=== PATIENT | male | born 2000 | race Asian ===

== ENCOUNTER 2021-05-21 02:32 | Inpatient (IN) | payer SELFPAY ==
[2021-05-21 04:10] LABS: #Eosinphils 0.1 thou/uL (0.0-0.7); #Monocytes 0.7 thou/uL (0.11-0.59); %Basophils 0.3 % (0.0-1.0); %Lymphocytes 10.4 % (21.0-51.0); %Monocytes 7.2 % (0.0-10.0); %Neutrophils 81.1 % (42.0-75.0); Hemoglobin 12.7 g/dL (14.0-18.0); Mean Corpuscular Hemoglobin 28.1 pg (27.0-31.0); Platelet Count 288 thou/uL (130-400); RBC Distribution Width 12.1 % (11.5-14.5); Red Blood Cell (RBC) Count 4.53 mill/uL (4.70-6.10); White Blood Cell (WBC) Count 9.9 thou/uL (4.8-10.8)
[2021-05-21 04:28] LABS: ALT (SGPT) 15 U/L (8-55); AST (SGOT) 23 U/L (5-34); Albumin 4.2 g/dL (3.5-5.0); Alkaline Phosphatase 58 U/L (40-110); Anion Gap 16 mmol/L (10-20); BUN (Urea Nitrogen) 13 mg/dL (8.9-20.6); Bilirubin, Total 0.4 mg/dL (0.2-1.2); Calc. Creatinine Clearance 0 mL/min (70-130); Calcium 9.1 mg/dL (7.8-10.44); Carbon Dioxide 24 mmol/L (22-29); Chloride 107 mmol/L (98-107); Globulin 3.4 g/dL (2.4-3.5); Glucose 118 mg/dL (70-105); Potassium 3.5 mmol/L (3.5-5.1); Protein, Total 7.6 g/dL (6.0-8.3); Sodium 143 mmol/L (136-145)
[2021-05-21] MEDS ORDERED: Ketorolac Tromethamine 30 MG/ML VIAL ONE (04:48)
[2021-05-21] MEDS ORDERED: Ondansetron PF 4 MG/2 ML Vial ONE (04:48)
[2021-05-21] MEDS ORDERED: Fentanyl 100 MCG/2 ML VIAL ONE (04:48)
[2021-05-21] MEDS ORDERED: Ampicillin/Sulbactam 3 GM in Sodium Chloride 0.9% 100 ML IVPB SCH (05:15)
[2021-05-21] MEDS ORDERED: Morphine 4 MG/ML VIAL SLOW IVP PRN (05:42)
[2021-05-21] MEDS ORDERED: Sodium Chloride 0.9% 1,000 ML IV SCH (05:45)
[2021-05-21] MEDS ORDERED: Ondansetron PF 4 MG/2 ML Vial IVP PRN ×2 (05:45→08:46)
[2021-05-21] MEDS ORDERED: Ondansetron ODT 4 MG TAB SL PRN (05:45)
[2021-05-21 06:50] VITALS: BMI 23.3
[2021-05-21 07:12] LABS: Lactic Acid 1.7 mmol/L (0.5-2.2)
[2021-05-21] MEDS ORDERED: Acetaminophen 500 MG TAB PO PRN (08:46)
[2021-05-21] MEDS ORDERED: Ondansetron ODT 4 MG TAB PO PRN (08:46)
[2021-05-21] MEDS ORDERED: Vancomycin 1.5 GRAM/300 ML BAG 1.5 GM in Premix Bag 1 BAG IVPB SCH (09:00)
[2021-05-21] MEDS ORDERED: Piperacillin/Tazobactam 3.375 GM in Sodium Chloride 0.9% 100 ML IVPB SCH (09:00)
[2021-05-21] MEDS: Famotidine/PF 20 mg/2ml Vial SLOW IVP SCH ×2 (09:17→20:35)
[2021-05-21] MEDS: Sodium Chloride 0.9% 1,000 ML IV SCH ×2 (09:18→19:26)
[2021-05-21] MEDS: Ketorolac Tromethamine 30 MG/ML VIAL IVP SCH ×3 (11:34→23:24)
[2021-05-21 11:56] LABS: SARS-CoV-2 PCR by NAA Not Detected (NotDetected)
[2021-05-21] MEDS ORDERED: Piperacillin/Tazobactam 4.5 GM in Sodium Chloride 0.9% 100 ML IVPB SCH (12:00)
[2021-05-21] MEDS: Morphine 4 MG/ML VIAL SLOW IVP PRN (15:23)
[2021-05-21] MEDS: Piperacillin/Tazobactam 3.375 GM in Sodium Chloride 0.9% 100 ML IVPB SCH ×2 (15:23→23:22)
[2021-05-21] MEDS: Vancomycin HCl 1.5 GM in Sodium Chloride 0.9% 250 ML 300 ML IVPB SCH (20:34)
[2021-05-22] MEDS: Ketorolac Tromethamine 30 MG/ML VIAL IVP SCH ×4 (05:37→23:36)
[2021-05-22] MEDS: Sodium Chloride 0.9% 1,000 ML IV SCH (05:38)
[2021-05-22] MEDS: Piperacillin/Tazobactam 3.375 GM in Sodium Chloride 0.9% 100 ML IVPB SCH ×3 (05:38→23:16)
[2021-05-22 07:04] LABS: #Eosinphils 0.2 thou/uL (0.0-0.7); #Monocytes 0.8 thou/uL (0.11-0.59); #Neutrophils 4.7 thou/uL (1.40-6.50); %Basophils 0.4 % (0.0-1.0); %Eosinophils 2.9 % (0.0-10.0); %Lymphocytes 25.9 % (21.0-51.0); %Neutrophils 60.9 % (42.0-75.0); Hemoglobin 11.2 g/dL (14.0-18.0); Mean Corpuscular HGB CONC 31.7 g/dL (32.0-36.0); Mean Corpuscular Hemoglobin 27.4 pg (27.0-31.0); Mean Corpuscular Volume 86.3 fL (78.0-98.0); Mean Platelet Volume 8.4 fL (7.4-10.4); Platelet Count 229 thou/uL (130-400); RBC Distribution Width 12.2 % (11.5-14.5); Red Blood Cell (RBC) Count 4.07 mill/uL (4.70-6.10); White Blood Cell (WBC) Count 7.8 thou/uL (4.8-10.8)
[2021-05-22 07:17] LABS: Anion Gap 12 mmol/L (10-20); BUN (Urea Nitrogen) 11 mg/dL (8.9-20.6); Calc. Creatinine Clearance 115 mL/min (70-130); Calcium 8.4 mg/dL (7.8-10.44); Carbon Dioxide 21 mmol/L (22-29); Chloride 110 mmol/L (98-107); Glucose 98 mg/dL (70-105); Potassium 3.8 mmol/L (3.5-5.1); Sodium 139 mmol/L (136-145)
[2021-05-22] MEDS: Famotidine/PF 20 mg/2ml Vial SLOW IVP SCH ×2 (09:13→21:25)
[2021-05-22] MEDS: Vancomycin HCl 1.5 GM in Sodium Chloride 0.9% 250 ML 300 ML IVPB SCH ×2 (11:00→21:24)
[2021-05-22] MEDS: Morphine 4 MG/ML VIAL SLOW IVP PRN ×2 (15:17→21:40)
[2021-05-23] MEDS: Ketorolac Tromethamine 30 MG/ML VIAL IVP SCH ×3 (05:27→18:28)
[2021-05-23] MEDS: Piperacillin/Tazobactam 3.375 GM in Sodium Chloride 0.9% 100 ML IVPB SCH (05:28)
[2021-05-23 08:35] LABS: Vancomycin, Trough 10.6 ug/mL
[2021-05-23] MEDS: Famotidine/PF 20 mg/2ml Vial SLOW IVP SCH ×2 (09:09→19:49)
[2021-05-23] MEDS: Vancomycin HCl 1.5 GM in Sodium Chloride 0.9% 250 ML 300 ML IVPB SCH (09:48)
[2021-05-23] MEDS: cefTRIAXone\\ROCEPHIN 2 GM in Sodium Chloride 0.9% 100 ML IVPB SCH (09:54)
[2021-05-23] MEDS: Morphine 4 MG/ML VIAL SLOW IVP PRN ×2 (10:00→19:50)
[2021-05-23] MEDS: VANCOMYCIN 1.25 GM/250 ML BAG 1.25 GM in Premix Bag 1 BAG IVPB SCH ×2 (11:30→18:28)
[2021-05-24] MEDS: Ketorolac Tromethamine 30 MG/ML VIAL IVP SCH ×3 (00:01→11:11)
[2021-05-24] MEDS: VANCOMYCIN 1.25 GM/250 ML BAG 1.25 GM in Premix Bag 1 BAG IVPB SCH (00:02)
[2021-05-24 08:10] LABS: Vancomycin, Trough 21.1 ug/mL
[2021-05-24] MEDS: Famotidine/PF 20 mg/2ml Vial SLOW IVP SCH (08:16)
[2021-05-24] MEDS: cefTRIAXone\\ROCEPHIN 2 GM in Sodium Chloride 0.9% 100 ML IVPB SCH (08:16)
[2021-05-24 11:52] VITALS: BP 104/59; TEMP 97.8
== END 2021-05-24 12:22 | disposition home or self-care (01) | DRG 603 ==
LOC: ERS 02:32 → SURG A 05:31
PROVIDERS: ADMIT Internal Medicine; ATTEND Family Medicine
PROC: 3E03329 Introduction of Other Anti-infective into Peripheral Vein, Percutaneous Approach (ICD-10-PCS; principal; 2021-05-21)
PROC: 0J9J0ZZ Drainage of Right Hand Subcutaneous Tissue and Fascia, Open Approach (ICD-10-PCS; 2021-05-21)
DX: L03.113 Cellulitis of right upper limb (principal); E87.2 Acidosis; L02.511 Cutaneous abscess of right hand; Z20.822 Contact with and (suspected) exposure to COVID-19; B95.61 Methicillin susceptible Staphylococcus aureus infection as the cause of diseases classified elsewhere
CPT/HCPCS: 36415; 80048; 80053; 80202; 83605; 85025; 86850; 86900; 86901; 87040; 87070; 87077; 87186; 87205; 96365; 96375; J0295; J0696; J1885; J2270; J2405; J2543; J3010; J3370; J3490; J7050; S0028; U0003; U0005